=== PATIENT | male | born 1985 | race Caucasian/White ===

== ENCOUNTER → 2020-10-05 16:23 | Outpatient (CLI) | payer OTHER, SELFPAY ==
--- NOTE | 2020-10-05 16:30 | XR_ITS ---
PROCEDURE: XR CHEST PORTABLE CLINICAL HISTORY: COVID OUTPATIENT Cough and shortness of breath COMPARISON: No exams were available for comparison FINDINGS: The cardiomediastinal silhouette and pulmonary vascularity are within normal limits. The lungs are clear without infiltrates, suspicious nodules, or pleural effusions. No acute bony abnormalities. IMPRESSION: No acute findings. Dictated by: Fabricio Ho MD 10/05/2020 16:42 Fabricio Ho MD in [facility] 10/05/2020 16:42
[2020-10-05 16:53] LABS: Basophils % 0.3 % (0.1-2.0); Eosinophils # 0.1 K/mm3 (0.0-0.4); Eosinophils % 1.2 % (0.1-12.0); Hematocrit 46.6 % (42.0-52.0); Hemoglobin 16.4 g/dL (14.1-18.0); Lymphocytes % 39.3 % (10-50); Mean Corpuscular HGB Conc 35.1 g/dL (31.8-35.4); Mean Corpuscular Hemoglobin 31.6 pg (27.0-31.2); Mean Platelet Volume 7.8 fl (7.4-10.4); Monocytes # 0.4 K/mm3 (0.1-1.0); Monocytes % 4.7 % (1.7-9.3); Neutrophils # 4.2 K/mm3 (1.8-7.8); Neutrophils % 54.4 % (37.0-80.0); Platelet Count 277 K/mm3 (142-424); Red Blood Count 5.18 M/mm3 (4.60-6.20); Red Cell Distribution Width 13.2 % (11.5-17.5); White Blood Count 7.7 K/mm3 (4.8-10.8)
--- NOTE | 2020-10-05 18:05 | ECG_ITS ---
APPROVED REPORT Exam: Resting ECG HR:70 bpm ECG Measurements Heart Rate 70 AXES WA 170 P 17 QRSd 84 QRS 54 QT 364 T 31 QTc 393 Conclusion Normal sinus rhythm Normal ECG Electronically signed by : Rafiq Norman, 10/06/2020 19:35:59
[2020-10-07 14:00] LABS: Covid-19 Nasal PCR Sendout Lex Not Detected
== END ==
PROVIDERS: PCP Nurse Practitioner; Visit Provider Nurse Practitioner
DX: Z03.818 Encounter for observation for suspected exposure to other biological agents ruled out (principal)
CPT/HCPCS: 36415; 71045; 85025; 93005; U0004

== ENCOUNTER → 2020-11-09 12:51 | Outpatient (CLI) | payer OTHER, SELFPAY ==
[2020-11-09 18:32] LABS: Basophils # 0.1 K/mm3 (0-0.2); Basophils % 0.7 % (0.1-2.0); Eosinophils # 0.1 K/mm3 (0.0-0.4); Eosinophils % 1.4 % (0.1-12.0); Hematocrit 49.7 % (42.0-52.0); Lymphocytes # 2.3 K/mm3 (0.7-4.5); Lymphocytes % 34.5 % (10-50); Mean Corpuscular HGB Conc 34.1 g/dL (31.8-35.4); Mean Corpuscular Hemoglobin 31.6 pg (27.0-31.2); Mean Corpuscular Volume 92.6 fl (80-94); Mean Platelet Volume 8.6 fl (7.4-10.4); Monocytes # 0.2 K/mm3 (0.1-1.0); Monocytes % 3.5 % (1.7-9.3); Neutrophils # 4.1 K/mm3 (1.8-7.8); Platelet Count 248 K/mm3 (142-424); Red Blood Count 5.37 M/mm3 (4.60-6.20); Red Cell Distribution Width 13.2 % (11.5-17.5); White Blood Count 6.8 K/mm3 (4.8-10.8)
== END ==
PROVIDERS: PCP Nurse Practitioner; Visit Provider Nurse Practitioner
DX: Z11.52 Encounter for screening for COVID-19 (principal)
CPT/HCPCS: 36415; 85025; 87275; 87276; U0003

== ENCOUNTER → 2020-11-24 15:20 | Outpatient (CLI) | payer OTHER, SELFPAY ==
[2020-11-24 16:45] LABS: Uric Acid 6.5 mg/dl (3.5-8.5)
[2020-11-24 16:51] LABS: C-Reactive Protein 0.9 mg/L (0-4)
[2020-11-24 17:19] LABS: Erythrocyte Sedimentation Rate 7 mm/hr (0-15)
[2020-11-26 08:48] LABS: RA Latex Turbid. <10.0 IU/mL (0.0-13.9)
[2020-11-26 18:49] LABS: Cytoplasmic (C-ANCA) <1:20 titer (Neg:<1:20); Perinuclear (P-ANCA) <1:20 titer (Neg:<1:20)
[2020-11-27 10:39] LABS: Anti-Cyclic Citrullinated Pept 5 units (0-19)
[2020-11-27 22:18] LABS: D001-IgE D pteronyssinus <0.10 kU/L (Class 0); D002-IgE D farinae <0.10 kU/L (Class 0); E001-IgE Cat Dander <0.10 kU/L (Class 0); E005-IgE Dog Dander <0.10 kU/L (Class 0); G002-IgE Bermuda Grass <0.10 kU/L (Class 0); G006-IgE Timothy Grass <0.10 kU/L (Class 0); I006-IgE Cockroach, German <0.10 kU/L (Class 0); Immunoglobulin E, Total 11 IU/mL (6-495); M001-IgE Penicillium chrysogen <0.10 kU/L (Class 0); M002-IgE Cladosporium herbarum <0.10 kU/L (Class 0); M003-IgE Aspergillus fumigatus <0.10 kU/L (Class 0); M006-IgE Alternaria alternata <0.10 kU/L (Class 0); T001-IgE Maple/Box Elder <0.10 kU/L (Class 0); T006-IgE Cedar, Mountain <0.10 kU/L (Class 0); T007-IgE Oak, White <0.10 kU/L (Class 0); T008-IgE Elm, American <0.10 kU/L (Class 0); T010-IgE Walnut <0.10 kU/L (Class 0); T011-IgE Maple Leaf Sycamore <0.10 kU/L (Class 0); T014-IgE Cottonwood <0.10 kU/L (Class 0); T015-IgE Ash, White <0.10 kU/L (Class 0); T022-IgE Pecan, Hickory <0.10 kU/L (Class 0); T070-IgE White Mulberry <0.10 kU/L (Class 0); W001-IgE Ragweed, Short <0.10 kU/L (Class 0); W011-IgE Thistle, Russian <0.10 kU/L (Class 0); W014-IgE Pigweed, Common <0.10 kU/L (Class 0); W016-IgE Rough Marshelder <0.10 kU/L (Class 0)
[2020-11-28 12:19] LABS: E072-IgE Mouse Urine <0.10 kU/L (Class 0)
[2020-11-29 09:35] LABS: Antinuclear Antibodies, IFA Negative (.)
[2020-11-30 12:12] LABS: Antinuclear Antibodies (ANA) Negative
== END ==
PROVIDERS: Visit Provider Internal Medicine Pulmonary Disease
DX: R06.00 Dyspnea, unspecified (principal); J98.4 Other disorders of lung; J44.9 Chronic obstructive pulmonary disease, unspecified; J84.9 Interstitial pulmonary disease, unspecified
CPT/HCPCS: 36415; 82785; 84550; 85651; 86003; 86038; 86140; 86200; 86225; 86235; 86256; 86431

== ENCOUNTER → 2020-12-18 14:01 | Outpatient (CLI) | payer OTHER, SELFPAY ==
--- NOTE | 2020-12-18 14:01 | CT_ITS ---
PROCEDURE: CT CHEST WO CON CLINICAL INDICATION: ILD Shortness of air COMPARISON: CR XR CHEST PORTABLE from 10/05/2020 TECHNIQUE: Axial images obtained with sagittal and coronal reformats. All CT scans at the facility use one or more dose reduction, viz: automated exposure control, ma/kV adjustment per patient size (including targeted exams where dose is matched to indication, i.e. head), or iterative reconstruction technique. Inspiration and expiration images were acquired. FINDINGS: There is no infiltrate. There is mild right basilar linear atelectasis. The lungs are clear. There are no suspicious lung nodules or masses. No visible areas of air trapping. No fibrotic change. No pleural effusions. The thyroid gland has an unremarkable unenhanced appearance. There is no suspicious thoracic adenopathy. Major vasculature has an unremarkable unenhanced appearance. Partial visualization of the upper abdomen is unremarkable. A benign bone island is incidentally noted a and the T12 vertebral body. IMPRESSION: Unremarkable high-resolution chest CT without CT evidence of interstitial lung disease. Dictated by: Xi Fernandez MD 12/18/2020 18:58 Xi Fernandez MD in [facility] 12/18/2020 18:58
[2020-12-18 15:40] VITALS: PULSE 72; PULSE 76
== END ==
PROVIDERS: PCP Nurse Practitioner; Visit Provider Internal Medicine Pulmonary Disease
DX: R06.09 Other forms of dyspnea (principal); R91.8 Other nonspecific abnormal finding of lung field; J84.9 Interstitial pulmonary disease, unspecified; J98.4 Other disorders of lung; Z87.09 Personal history of other diseases of the respiratory system
CPT/HCPCS: 71250; 94060; 94618; 94640; 94726; 94729

== ENCOUNTER → 2021-11-10 11:04 | Outpatient (CLI) | payer OTHER, SELFPAY ==
[2021-11-10 13:09] LABS: Adenovirus,PCR Not Detected (NotDetected); Bordetella Pertussis Not Detected (NotDetected); Chlamydophila Pneumoniae, PCR Not Detected (NotDetected); Coronavirus 19, PCR Not Detected (NotDetected); Coronavirus 229E Not Detected (NotDetected); Coronavirus NL63 Not Detected (NotDetected); Coronavirus OC43 Not Detected (NotDetected); Coronovirus HKU1,PCR Not Detected (NotDetected); Human Metapneumovirus Not Detected (NotDetected); Influenza A, PCR Not Detected (NotDetected); Influenza AH1, 2009 Not Detected (NotDetected); Influenza AH1, PCR Not Detected (NotDetected); Influenza AH3,PCR Not Detected (NotDetected); Influenza B, PCR Not Detected (NotDetected); Mycoplasma Pneumoniae, PCR Not Detected (NotDetected); Parainfluenza 1, PCR Not Detected (NotDetected); Parainfluenza 2, PCR Not Detected (NotDetected); Parainfluenza 3, PCR Not Detected (NotDetected); Parainfluenza 4, PCR Not Detected (NotDetected); Respiratory Syncytial Virus Not Detected (NotDetected); Rhinovirus/Enterovirus Not Detected (NotDetected)
[2021-11-10 13:13] LABS: Basophils # 0.2 K/mm3 (0-0.2); Basophils % 2.5 % (0.1-2.0); Eosinophils # 0.1 K/mm3 (0.0-0.4); Hematocrit 48.3 % (42.0-52.0); Hemoglobin 15.6 g/dL (14.1-18.0); Lymphocytes # 1.1 K/mm3 (0.7-4.5); Lymphocytes % 18.4 % (10-50); Mean Corpuscular HGB Conc 32.4 g/dL (31.8-35.4); Mean Corpuscular Hemoglobin 30.6 pg (27.0-31.2); Mean Corpuscular Volume 94.7 fl (80-94); Mean Platelet Volume 8.9 fl (7.4-10.4); Monocytes # 0.7 K/mm3 (0.1-1.0); Neutrophils # 3.8 K/mm3 (1.8-7.8); Platelet Count 225 K/mm3 (142-424); Red Cell Distribution Width 13.1 % (11.5-17.5); White Blood Count 5.8 K/mm3 (4.8-10.8)
[2021-11-10 14:24] LABS: Strep Scrn Group A (Rapid) Negative (Negative)
== END ==
PROVIDERS: PCP Nurse Practitioner; Visit Provider Nurse Practitioner
DX: Z20.822 Contact with and (suspected) exposure to COVID-19 (principal); J02.9 Acute pharyngitis, unspecified
CPT/HCPCS: 36415; 85025; 87430; 87581; 87632; 87798; C9803; U0003; U0005

== ENCOUNTER → 2022-09-30 16:11 | Outpatient (CLI) | payer OTHER, SELFPAY ==
[2022-09-30 19:27] LABS: Basophils # 0.1 K/mm3 (0-0.2); Basophils % 1.3 % (0.1-2.0); Eosinophils # 0.3 K/mm3 (0.0-0.4); Eosinophils % 3.3 % (0.1-12.0); Hematocrit 49.6 % (42.0-52.0); Lymphocytes # 2.9 K/mm3 (0.7-4.5); Lymphocytes % 31.2 % (10-50); Mean Corpuscular HGB Conc 34.3 g/dL (31.8-35.4); Mean Corpuscular Hemoglobin 31.1 pg (27.0-31.2); Mean Corpuscular Volume 90.6 fl (80-94); Mean Platelet Volume 9.2 fl (7.4-10.4); Monocytes # 0.6 K/mm3 (0.1-1.0); Monocytes % 6.1 % (1.7-9.3); Neutrophils # 5.4 K/mm3 (1.8-7.8); Neutrophils % 58.1 % (37.0-80.0); Platelet Count 291 K/mm3 (142-424); Red Blood Count 5.48 M/mm3 (4.60-6.20); Red Cell Distribution Width 13.1 % (11.5-17.5); White Blood Count 9.3 K/mm3 (4.8-10.8)
[2022-09-30 19:48] LABS: Alanine Aminotransferase 130 U/L (12-78); Albumin Level 4.9 g/dl (3.5-5.0); Albumin/Globulin Ratio 1.6 (1.1-1.8); Alkaline Phosphatase 113 U/L (38-126); Anion Gap 14.6 mEq/L (5-15); Aspartate Amino Transferase 66 U/L (17-59); Bilirubin,Total 0.6 mg/dl (0.2-1.3); Blood Urea Nitrogen 22 mg/dl (9-20); Calcium 10.1 mg/dl (8.4-10.2); Carbon Dioxide 27 mmol/L (22.0-30.0); Chloride 103 mmol/L (98-107); Estimated Glomerular Filt Rate 76 ml/min (>60); GFR (African American) 92 ML/MIN (>60); Glucose 96 mg/dl (74-100); Potassium 4.6 mmoL/L (3.5-5.1); Sodium 140 mmol/L (136-145); Total Protein,Serum 7.9 g/dl (6.3-8.2)
== END ==
PROVIDERS: PCP Family Medicine; Visit Provider Family Medicine
DX: R53.83 Other fatigue (principal); T50.B95A Adverse effect of other viral vaccines, initial encounter
CPT/HCPCS: 80053; 85025

== ENCOUNTER → 2023-05-15 15:48 | Outpatient (CLI) | payer BC, SELFPAY ==
[2023-05-15 19:08] LABS: Basophils % 0.5 % (0.1-2.0); Eosinophils # 0.1 K/mm3 (0.0-0.4); Eosinophils % 1.9 % (0.1-12.0); Hematocrit 46.4 % (42.0-52.0); Hemoglobin 15.7 g/dL (14.1-18.0); Lymphocytes # 2.7 K/mm3 (0.7-4.5); Lymphocytes % 36.8 % (10-50); Mean Corpuscular Volume 88.3 fl (80-94); Monocytes # 0.5 K/mm3 (0.1-1.0); Monocytes % 6.2 % (1.7-9.3); Neutrophils % 54.6 % (37.0-80.0); Platelet Count 256 K/mm3 (142-424); Red Blood Count 5.25 M/mm3 (4.60-6.20); Red Cell Distribution Width 13.1 % (11.5-17.5); White Blood Count 7.4 K/mm3 (4.8-10.8)
[2023-05-15 19:18] LABS: Alanine Aminotransferase 80 U/L (12-78); Albumin Level 4.4 g/dl (3.5-5.0); Albumin/Globulin Ratio 1.5 (1.1-1.8); Alkaline Phosphatase 93 U/L (38-126); Anion Gap 10.9 mEq/L (5-15); Aspartate Amino Transferase 44 U/L (17-59); Bilirubin,Total 0.3 mg/dl (0.2-1.3); Blood Urea Nitrogen 20 mg/dl (9-20); Calcium 9.4 mg/dl (8.4-10.2); Carbon Dioxide 27 mmol/L (22.0-30.0); Chloride 106 mmol/L (98-107); Estimated Glomerular Filt Rate 84 ml/min (>60); GFR (African American) 102 ML/MIN (>60); Glucose 100 mg/dl (74-100); Potassium 4.9 mmoL/L (3.5-5.1); Sodium 139 mmol/L (136-145); Total Protein,Serum 7.4 g/dl (6.3-8.2)
[2023-05-15 19:36] LABS: 25-OH Vitamin D, Total 33.9 ng/mL (30-100)
[2023-05-15 19:48] LABS: Thyroid Stimulating Hormone 1.95 uIU/mL (0.465-4.68)
[2023-05-15 20:07] LABS: Vitamin B12 599 pg/mL (239-931)
[2023-05-15 20:33] LABS: Hemoglobin A1C 5.1 % (4.0-6.0)
[2023-05-17 05:09] LABS: Testosterone,Total 327 ng/dL (264-916)
== END ==
LOC: LAB.DROPOF 05-16 06:57
PROVIDERS: PCP Nurse Practitioner; Visit Provider Nurse Practitioner
DX: R53.83 Other fatigue (principal); E66.9 Obesity, unspecified; Z68.37 Body mass index [BMI] 37.0-37.9, adult; M79.604 Pain in right leg; Z87.81 Personal history of (healed) traumatic fracture
CPT/HCPCS: 80053; 82306; 82607; 83036; 84403; 84443; 85025

== ENCOUNTER 2023-11-22 19:37 | Outpatient (CLI) | payer BC, SELFPAY ==
[2023-11-22 20:43] LABS: Adenovirus,PCR Not Detected (NotDetected); Coronavirus 19, PCR Not Detected (NotDetected); Coronavirus 229E Not Detected (NotDetected); Coronavirus NL63 Not Detected (NotDetected); Coronavirus OC43 Not Detected (NotDetected); Coronovirus HKU1,PCR Not Detected (NotDetected); Human Metapneumovirus Not Detected (NotDetected); Influenza A, PCR Not Detected (NotDetected); Influenza AH1, 2009 Not Detected (NotDetected); Influenza AH1, PCR Not Detected (NotDetected); Influenza AH3,PCR Not Detected (NotDetected); Parainfluenza 1, PCR Not Detected (NotDetected); Parainfluenza 2, PCR Not Detected (NotDetected); Parainfluenza 3, PCR Not Detected (NotDetected); Parainfluenza 4, PCR Not Detected (NotDetected); Respiratory Syncytial Virus Not Detected (NotDetected); Rhinovirus/Enterovirus Not Detected (NotDetected)
[2023-11-22 22:32] LABS: Influenza B, PCR Detected (NotDetected)
== END 2023-11-22 23:59 ==
PROVIDERS: PCP Nurse Practitioner; Visit Provider Nurse Practitioner
DX: J06.9 Acute upper respiratory infection, unspecified (principal); J10.1 Influenza due to other identified influenza virus with other respiratory manifestations; R09.81 Nasal congestion; R50.9 Fever, unspecified; R05.9 Cough, unspecified; J02.9 Acute pharyngitis, unspecified
CPT/HCPCS: 87632; 87635

== ENCOUNTER 2024-06-14 11:20 | Outpatient (CLI) | payer BC, SELFPAY | END 2024-06-14 23:59 | disposition home or self-care (01) | LOC: LAB.DROPOF 06-17 11:21 | PROVIDERS: PCP Nurse Practitioner Family; Visit Provider Nurse Practitioner Family | DX: N20.0 Calculus of kidney (principal) | CPT/HCPCS: 87086 ==

== ENCOUNTER 2025-05-19 15:50 | Outpatient (CLI) | payer BC, SELFPAY ==
--- OUTSIDE RECORDS SUMMARY | 2025-04-08 12:30 | XMS_ITS | Encounter Summary ---
Author Organization [place] [address] Care Team Providers Care Graduate Assistant Athletic Trainer Name Role Phone Bradford Howe MD Primary Care Provider [phone] Reason for Referral * Consultation (Emergency) - Pending Review Specialty Diagnoses / Procedures Referred By Contac t Referred To Contact Diagnoses Acute pain of left shoulder Procedures [place] OFFICE/OUTPATIENT NEW MODERATE MDM 45 MINUTES Blake Lee MD [address] [place], [place] [id number] Phone: tel: fax: Referral ID Status Reason Start Date Expiration Date V isits Requested Visits Authorized [id number] Pending Review 04/08/2025 04/08/2026 99 99 Reason for Visit * Reason Comments Shoulder Injury X 1 hr Encounter Details Date Type Department Care Team (Late st Contact Info) Description 04/08/2025 12:30 PM EDT [facility] [address] [address] [address] [place] [address] Blake Lee MD [address] [place] [address] Acute pain of left shoulder (Primary Dx) Social History Tobacco Use Types Packs/Day Years Used Date Smoking Tobacco: Never Smokeless Tobacco: Never Alcohol Use Standard Drinks/Week Comments No 0 (1 standard drink = 0.6 oz pur e alcohol) Sex and Gender Information Value Date Recorded Sex Assigned at Not on file Legal Sex Male 7:22 AM EDT Gender Identity Not on file Sexual Orientation Not on file documented as of this encounter Last Filed Vital Signs Vital Sign Reading Time Taken Comments Blood Pressure 156/88 04/08/2025 12:23 PM EDT Pulse 79 04/08/2025 12:23 PM EDT Temperature 36.6 C (97.8 F) 04/08/2025 12:23 PM EDT Respiratory Rate 18 04/08/2025 12:23 PM EDT Oxygen Saturation 97% 04/08/2025 12:23 PM EDT Inhaled Oxygen Concentration - - Weight 94.3 kg (208 lb) 04/08/2025 12:23 PM EDT Height 180.3 cm (5' 11 ) 04/08/2025 12:23 PM EDT Body Mass Index 29.01 04/08/2025 12:23 PM EDT documented in this encounter Patient Instructions * Attachments The following attachments cannot be sent through Care Everywhere. * Shoulder impingement ([place]enezuelan) * Rotator cuff injury ([place]enezuelan) documented in this encounter Ordered Prescriptions Prescription Sig Dispense Quantity Refills Last Filled Start Date End Date diclofenac (VOLTAREN) 75 mg Oral Tablet, Delayed Release (E.C.)Indications:A cute pain of left shoulder Take 1 Tablet by mouth 2 times daily (with meals). 30 Tablet 04/08/2025 documented in this encounter Progress Notes * Blake Lee MD - 04/08/2025 12:30 PM EDTAssociated Order(s): BURSA INJECTION Subjective: Patient ID: Tio Mccormick is a 39 y.o. male. Chief Complaint Patient presents with Shoulder Injury X 1 hr HPI Patient fell on his left shoulder a few months ago and since then the shoulder has been painful on and off especially at night. ED today he was pulling something at work and felt pain in the left shoulder as well. I only know if he has been having a milder pain in the right shoulder Patients past medical, family and social histories were reviewed and updated. There were no changesexcept as noted. Review of Systems Constitutional: Negative for activity change, appetite change, chills, diaphoresis, fatigue and fever. HENT: Negative for congestion, ear discharge, ear pain, postnasal drip, rhinorrhea, sinus pressure,sinus pain, sore throat and voice change. Eyes: Negative for pain and discharge. Respiratory: Negative for cough and wheezing. Cardiovascular: Negative for chest pain. Gastrointestinal: Negative for diarrhea and nausea. Genitourinary: Negative for dysuria, flank pain, frequency and hematuria. Musculoskeletal: Negative for arthralgias, back pain, gait problem and myalgias. Skin: Negative for rash. Neurological: Negative for numbness and headaches. Hematological: Negative for adenopathy. Psychiatric/Behavioral: Negative for behavioral problems. The patient is not nervous/anxious. BURSA INJECTION Date/Time: 04/08/2025 1:42 PM Performed by: Blake Lee MD Authorized by: Blake Lee MD Indications: pain Body area: shoulder Joint: left shoulder Needle size: 22 G Approach: posterior Methylprednisolone amount: 40 mg Lidocaine 1% amount: 7 mL Patient tolerance: patient tolerated the procedure well with no immediate complications Comments: Patient reported 25% improvement in pain and range of motion Objective: Vitals: 04/08/25 1223 BP: 156/88 BP Location: Left arm Patient Position: Sitting Pulse: 79 Resp: 18 Temp: 97.8 ??F (36.6 ??C) TempSrc: Oral SpO2: 97% Weight: 208 lb (94.3 kg) Height: 5' 11 (1.803 m) Body mass index is 29.01 kg/m??. Physical Exam Constitutional: General: He is not in acute distress. Appearance: Normal appearance. He is not ill-appearing, toxic-appearing or diaphoretic. HENT: Head: Normocephalic and atraumatic. Nose: Nose normal. No congestion or rhinorrhea. Eyes: General: Right eye: No discharge. Left eye: No discharge. Extraocular Movements: Extraocular movements intact. Conjunctiva/sclera: Conjunctivae normal. Cardiovascular: Rate and Rhythm: Normal rate. Pulmonary: Effort: Pulmonary effort is normal. No respiratory distress. Breath sounds: No stridor. Abdominal: General: Abdomen is flat. There is no distension. Musculoskeletal: General: No deformity. Normal range of motion. Cervical back: Normal range of motion and neck supple. Comments: Right shoulder showed full but painful range of motion left shoulder showed the very limited range of motion Especially abduction with no tenderness over the AC joint Skin: General: Skin is dry. Coloration: Skin is not jaundiced. Findings: No bruising or rash. Neurological: Mental Status: He is alert and oriented to person, place, and time. Motor: No abnormal muscle tone. Coordination: Coordination normal. Psychiatric: Mood and Affect: Mood normal. Behavior: Behavior normal. Assessment & Plan Acute pain of left shoulder Orders: XR SHOULDER LEFT 4 VIEWS; Future [place] ARTHROCENTESIS ASPIR&/INJ MAJOR JT/BURSA W/O US AMB REFERRAL TO ORTHOPEDIC SURGERY COURSE & MEDICAL DECISION MAKING Pertinent PMH and subjective/individualized health status, previous hospital admissions and office visits, previous diagnostic test results; as well as evaluating and examining the patient. Counseling the patient on their acute diagnosis and symptomology; reviewing, considering prescribing, or prescribing appropriate medications for the diagnosis and treatment of the acute condition as well as reviewing potential drug interactions and contraindications to newly prescribed medications corresponding with current health status and previously prescribed medications; reviewing discharge instructions respective to continuity of care with their PCP, or as applicable to acutely worsening conditionsthat may require immediate Emergency Department intervention in order to properly formulate an individualized care plan: Education provided regarding the care plan and instructions listed on the After Visit Summary [AVS]for today's visit. Full understanding of the care plan and instructions given on the AVS for today's visit was verbalized. Provided problem specific pt education information pertinent to their diagnosis and presentation today given as both verbal and printed recommendations, information and advice. See the wrap up section of the chart for the specific education information that was provided to and discussed in part as a part of the patient visit. 1. Instructed that if any acute problems worsen or fail to improve that they should contact urgent care or covering physician. If acutely worse, unable to reach our physicians (and is an emergency) go to emergency room. 2. All the problems above are stable except as indicated above. Medications, if ordered, have been reviewed and possible side effects discussed with patient today. Return for a recheck if not improved or worse, with your PCP. PLANS FOLLOWS: Normal x-ray of the left shoulder follow-up with orthopedic surgery Patient was agreeable with this plan of care, and thankful for the care she received today in the urgent care. Full PPE was donned and both contact and airborne precautions were implemented during examination of this patient. This chart was completed using Dragon voice recognition technology and may contain unintended errors. No follow-ups on file. documented in this encounter Plan of Treatment Scheduled Orders Name Type Priority Associated Diagnoses Orde r Schedule [place] ARTHROCENTESIS ASPIR&/INJ MAJOR JT/BURSA W/O US [place] Charge Routine Acute pain of left shoulder Ordered: 04/08/2025 Scheduled Referrals Name Type Priority Associated Diagnoses Order Schedule AMB REFERRAL TO ORTHOPEDIC SURGERY Outpatient Referral STAT Acute pain of left shoulder Ordered: 04/08/2025 documented as of this encounter Procedures Procedure Name Priority Date/Time Associated Diagnosis Comments PROCEDURE DOCUMENTATION - ASPIRATION Routine 04/08/2025 1:42 PM EDT Acute pain of left shoulder documented in this encounter Results * BURSA INJECTION (04/08/2025 1:42 PM EDT) Narrative [facility] - 04/08/2025 1:42 PM EDT Blake Lee MD 04/08/2025 1:43 PM BURSA INJECTION Date/Time: 04/08/2025 1:42 PM Performed by: Blake Lee MD Authorized by: Blake Lee MD Indications: pain Body area: shoulder Joint: left shoulder Needle size: 22 G Approach: posterior Methylprednisolone amount: 40 mg Lidocaine 1% amount: 7 mL Patient tolerance: patient tolerated the procedure well with no immediate complications Comments: Patient reported 25% improvement in pain and range of motion Blake Lee MD PROCEDURE/MINOR SURGICAL ORDERAB LES Final Result [facility] * XR SHOULDER LEFT 4 VIEWS (04/08/2025 12:51 PM EDT) Anatomical Region Laterality Modality Shoulder Radiographic Zahra ging 04/08/2025 12:5 1 PM EDT Impressions 04/08/2025 12:54 PM EDT No acute bony abnormality of the shoulder. - Note: Radiology results need to be interpreted within a comprehensive clinical context. If you have questions about the radiology report, please contact the office of the ordering clinician. Narrative 04/08/2025 12:54 PM EDT XR SHOULDER LEFT 4 VIEWS, 04/08/2025 12:51 PM CLINICAL HISTORY: M25.512-Pain in left [id number]-DWM-28-CM COMPARISON: None. PROCEDURE COMMENTS: Routine views. FINDINGS: The glenohumeral and acromioclavicular joints are congruent. There is no fracture. Joint spaces overall well-maintained for age. No periostitis. Procedure Note Thomas Booth MD - 04/08/2025 XR SHOULDER LEFT 4 VIEWS, 04/08/2025 12:51 PM CLINICAL HISTORY: M25.512-Pain in left [id number]-[id number]-79-CM COMPARISON: None. PROCEDURE COMMENTS: Routine views. FINDINGS: The glenohumeral and acromioclavicular joints are congruent.There is no fracture. Joint spaces overall well-maintained for age. No periostitis. IMPRESSION: No acute bony abnormality of the shoulder. - Note: Radiology results need to be interpreted within a comprehensiveclinical context. If you have questions about the radiology report, please contactthe office of the ordering clinician. Blake Lee MD IM DIAGNOSTIC IMAGING ORDERABLE S Final Result documented in this encounter Visit Diagnoses Diagnosis Acute pain of left shoulder- Primary Acute pain of left shoulder documented in this encounter Administered Medications Inactive Administered Medications - up to 1 most recent administrations Medication Order MAR Action Action Date Dose Rate Site methylPREDNISolone acetate (DEPO-Medrol) injection 40 mg 40 mg, Intra-articular, ONCE, 1 dose, On Tu04/08/25 at 1330, Dx: 1. Acute pain of left shoulderIndications:Acute pain of left shoulder Given 04/08/2025 1:30 PM EDT 40 mg Left Shoulder documented in this encounter Orders Medications Ordered That Bowen ht Not Have Been Administered Count Last Ordered Date First Ordered Date methylPREDNISolone acetate ( DEPO-Medrol) injection 40 mg 1 04/08/2025 documented in this encounter Care Teams Graduate Assistant Athletic Trainer Relationship Specialty Start Date End Date Bradford Howe MD [address] [place] [address] [place] [phone] PCP - General Psychiatry & Neurology-Neurology 10/04/11 documented as of this encounter
--- OUTSIDE RECORDS SUMMARY | 2025-04-08 12:50 | XMS_ITS | Encounter Summary ---
Author Organization [place] [address] Care Team Providers Care Director Of Operations For Therapy Name Role Phone Bradford Howe MD Primary Care Provider [phone] Encounter Details Date Type Department Care Team (Latest Contact Info) Description 04/08/2025 12:50 PM EDT Ancillary Procedure [facility] [address] [address] [address] [place] [phone] Blake Lee MD [address] [place] [address] [address] [place] [address] Acute pain of left shoulder Discharge Disposition: [...] 12:51 PM CLINICAL HISTORY: M25.512-Pain in left [id number]-LEY-18-CM COMPARISON: None. PROCEDURE COMMENTS: Routine views. FINDINGS: The glenohumeral and acromioclavicular joints are congruent. There is no fracture. Joint spaces overall well-maintained for age. No periostitis. Procedure Note Thomas Booth MD - 04/08/2025 XR SHOULDER LEFT 4 VIEWS, 04/08/2025 12:51 PM CLINICAL HISTORY: M25.512-Pain in left phsxglio-CNE-70-CM COMPARISON: None. PROCEDURE COMMENTS: Routine views. FINDINGS: The glenohumeral and acromioclavicular joints are congruent.There is no fracture. Joint spaces overall well-maintained for age. No periostitis. IMPRESSION: No acute bony abnormality of the shoulder. - Note: Radiology results need to be interpreted within a comprehensiveclinical context. If you have questions about the radiology report, please contactthe office of the ordering clinician. Blake Lee MD [facility] DIAGNOSTIC IMAGING ORDERABLE S Final Result documented in this encounter Visit Diagnoses Diagnosis Acute pain of left shoulder documented in this encounter Care Teams Director Of Operations For Therapy Relationship Specialty Start Date End Date Bradford Howe MD [address] [place] [address] [place] [phone] PCP - General Psychiatry & Neurology-Neurology 10/04/11 documented as of this encounter
[2025-05-19 19:08] LABS: Lyme Ab IgM CIA ND
[2025-05-19 19:33] LABS: Hematocrit 46.1 % (42.0-52.0); Hemoglobin 15.5 g/dL (14.1-18.0); Immature Granulocytes % 1.0 %; Mean Corpuscular HGB Conc 33.6 g/dL (31.8-35.4); Mean Corpuscular Hemoglobin 29.5 pg (27.0-31.2); Mean Corpuscular Volume 87.8 fl (80-94); Nucleated Red Blood Cells % 0 %; Platelet Count 227 K/mm3 (142-424); Red Blood Count 5.25 M/mm3 (4.60-6.20); Red Cell Distribution Width-SD 39.8 fL; White Blood Count 5.9 K/mm3 (4.8-10.8)
[2025-05-19 19:51] LABS: Albumin Level 4.9 g/dl (3.5-5.0); Chloride 102 mmol/L (98-107)
[2025-05-19 19:52] LABS: Potassium 4.5 mmoL/L (3.5-5.1); Sodium 140 mmol/L (136-145)
[2025-05-19 19:54] LABS: Alanine Aminotransferase 201 U/L (12-78); Anion Gap 14.5 mEq/L (5-15); Aspartate Amino Transferase 88 U/L (17-59); Blood Urea Nitrogen 18 mg/dl (9-20); Carbon Dioxide 28 mmol/L (22.0-30.0); Creatinine,Serum 0.90 mg/dl (0.66-1.25); Estimated Glomerular Filt Rate 94 ml/min (>60); GFR (African American) 114 ML/MIN (>60)
[2025-05-19 19:55] LABS: Albumin/Globulin Ratio 1.5 (1.1-1.8); Alkaline Phosphatase 77 U/L (38-126); Bilirubin,Total 0.9 mg/dl (0.2-1.3); Calcium 9.9 mg/dl (8.4-10.2); Globulin 3.3 g/dL (1.3-3.2); Glucose 86 mg/dl (74-100); Total Protein,Serum 8.2 g/dl (6.3-8.2)
[2025-05-19 20:00] LABS: C-Reactive Protein 1.2 mg/L (0-4)
[2025-05-19 20:45] LABS: Hepatitis C Ab Qual. W/ RFX NEGATIVE (Negative)
--- OUTSIDE RECORDS SUMMARY | 2025-05-20 12:18 | XMS_ITS | Clinical Summary ---
Author Organization [facility] Address [address] [place] [address] Phone Care Team Providers Care Cuff Setter Overlock Name Role Phone Tariq Lagos MD [phone] Conditions or Problems No information available. Medications No information available. Medications Administered No information available. Allergies, Adverse Reactions, Alerts No information available. Results No information available. Plan of Care No information available. Procedures No information available. Vital Signs No information available. Immunizations No information available. Advance Directives No information available.
--- OUTSIDE RECORDS SUMMARY | 2025-05-20 12:19 | XMS_ITS | Referral Summary ---
Author Organization [facility] Address [address] [place] [address] Care Team Providers Care Sock Examiner Name Role Phone Pcp, None MD Primary Care Provider [phone] Medications valacyclovir (VALTREX) 500 MG TABS Take 500 mg by mouth 2 (two) times daily. Active Active Problems No known active problems Social History Tobacco Use Types Packs/Day Years Used Date Smoking Tobacco: Never Smokeless Tobacco: Never Sex and Gender Information Value Date Recorded Sex Assigned at Not on file Legal Sex Male 1:49 PM EDT Gender Identity Not on file Sexual Orientation Not on file Last Filed Vital Signs Vital Sign Reading Time Taken Comments Blood Pressure 140/89 03/01/2019 2:08 PM EDT Pulse 76 03/01/2019 2:08 PM EDT Temperature 37.1 C (98.7 F) 03/01/2019 2:08 PM EDT Respiratory Rate 16 03/01/2019 2:08 PM EDT Oxygen Saturation 99% 03/01/2019 2:08 PM EDT Inhaled Oxygen Concentration - - Weight 88.9 kg (196 lb) 03/01/2019 2:08 PM EDT Height 177.8 cm (5' 10 ) 03/01/2019 2:08 PM EDT Body Mass Index 28.12 03/01/2019 2:08 PM EDT Plan of Treatment Not on file Insurance [employer] ALL OTHERS NOT MEDICARE Care Teams Sock Examiner Relationship Specialty Start Date End Date Pcp, None, PCP - General Internal Medicine 03/01/19
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
--- OUTSIDE RECORDS SUMMARY | 2025-05-20 12:19 | XMS_ITS | Clinical Summary ---
Author Organization [facility] Address [address] [place] [address] Care Team Providers Care Glass Vial Filler Name Role Phone Nonstaff, Referring MD Primary Care Provider [phone] Layo Ortega MD Unavailable Unavailabl e Allergies Active Allergy Reactions Criticality Noted Date Comments Penicillins 11/25/2011 Tegaderm 12/07/2011 Immediate rash at iv site Medications HYDROmorphone (DILAUDID) 4 mg PO tablet Take 2 Tabs by mouth every 4 hours as needed. 90 Tab 0 12/09/2011 Active methocarbamol (ROBAXIN) 750 mg PO tablet Take 1-2 Tabs by mouth every 6 hours as needed. 112 Tab 0 12/09/2011 Active Active Problems Problem Noted Date Diagnosed Date Congenital spondylolisthesis 12/07/2011 Degeneration of lumbar or lumbosacral interverte bral disc 12/07/2011 Displacement of lumbar inter vertebral disc without myelopathy 12/07/2011 Family History Medical History Relation Name Comments Cancer Mother Relation Name Status Comments Mother Social History Tobacco Use Types Packs/Day Years Used Date Smoking Tobacco: Never Smokeless Tobacco: Never Alcohol Use Standard Drinks/Week Comments Yes 0 (1 standard drink = 0.6 oz pur e alcohol) occas Sex and Gender Information Value Date Recorded Sex Assigned at Not on file Legal Sex Male 7:15 PM EST Gender Identity Not on file Sexual Orientation Not on file Last Filed Vital Signs Vital Sign Reading Time Taken Comments Blood Pressure 122/77 12/09/2011 7:00 AM EST Pulse 96 12/09/2011 7:00 AM EST Temperature 37.3 C (99.2 F) 12/09/2011 7:00 AM EST Respiratory Rate 16 12/09/2011 7:00 AM EST Oxygen Saturation 95% 12/09/2011 7:00 AM EST Inhaled Oxygen Concentration - - Weight 79.8 kg (176 lb) 12/07/2011 5:18 PM EST Height 167.6 cm (5' 6 ) 12/07/2011 5:18 PM EST Body Mass Index 28.41 12/07/2011 5:18 PM EST Plan of Treatment Not on file Medical Devices Implanted Type Area Bone Process Operator Device Identifier Shelf Expiration Date Model / Serial / Lot Graft Bone Kt Infuse Med Implanted:Qty : 1 on 12/07/2011 at [facility] Spine Lumbar * MEDTRONIC 07/30/2014 [id number] / / [id number] Herman Mon Pre-Bent 30mm Ti Implanted:Qty : 1 on 12/07/2011 at [facility] Spine Lumbar * CYNTHIA MARIE [id number] / / Rashard Bone Crush Canc 30ml Implanted:Qty : 1 on 12/07/2011 at [facility] Spine Lumbar * LIFENET 08/30/2016 PCAN30 / / [id number] Grft Bone Crush Canc 30ml Implanted:Qty : 1 on 12/07/2011 at [facility] Spine Lumbar * LIFENET 08/29/2016 PCAN30 / / [id number] Mesh 12x23 Ov/Tr 12x16 Height Implanted:Qty : 2 on 12/07/2011 at [facility] Spine Lumbar * CYNTHIA MARIE [id number] / / Endcap 12x23 Implanted:Qty : 4 on 12/07/2011 at [facility] Spine Lumbar * CYNTHAI MARIE [id number] / / Scr Si Polyaxl 7 X 40mm Implanted:Qty : 2 on 12/07/2011 at [facility] Spine Lumbar * CYNTHIA MARIE [id number] / / Scr Si Polyaxl 6 X 50mm Implanted:Qty : 2 on 12/07/2011 at [facility] Spine Lumbar * CYNTHIA MARIE [id number] / / Single-Inner Setscr Implanted:Qty : 4 on 12/07/2011 at [facility] Spine Lumbar * CYNTHIA MARIE [id number] / / Herman Mon Pre-Bent 35mm Ti Implanted:Qty : 1 on 12/07/2011 at [facility] Spine Lumbar * CYNTHIA MARIE [id number] / / Insurance ANTHEM Advance Directives For more information, please contact: [phone] * Full Code (Latest Code Status on File) Date Activated Date Inactivated Comments 12/07/2011 5:35 PM 12/10/2011 12:33 AM Care Teams Glass Vial Filler Relationship Specialty Start Date End Date Laura Richardson MD [address] [place] [address] PCP - General 11/25/11 Layo Ortega MD [address] [place] [address] Orthopedic Surgery 11/06/22
--- OUTSIDE RECORDS SUMMARY | 2025-05-20 12:19 | XMS_ITS | Clinical Summary ---
Author Organization [facility] Address [address] [place] [id number] Care Team Providers Care Tariff Inspector Name Role Phone Pcp, None MD Primary Care Provider [phone] Medications valacyclovir (VALTREX) 500 MG TABS Take [...] 03/01/2019 2:08 PM EDT Plan of Treatment Health Maintenance Due Date Last Done Comments DTap,Tdap,and Td (1 - Tdap) 1996 HPV (1 - 3-dose SCDM series) 2012 Influenza Vaccine (#1) 2025 RSV Vaccine (60+ or ) (1 - 1-dose 75+ series) 2060 Meningococcal conjugate joel nt 4 (MCV4) Aged Out No longer eligible b ased on patient's age to complete this topic Pneumococcal 0-49 Aged Out No longer eligible based on patient's age to complete this topic RSV Immunization (<20 months) Aged Out No longer eligible based on patient's age to complete this topic Insurance [facility] ALL OTHERS NOT MEDICARE Care Teams Tariff Inspector Relationship Specialty Start Date End Date Pcp, None, PCP - General Internal Medicine 03/01/19
[2025-05-21 05:21] LABS: Hepatitis B Surface Antigen Negative (Negative)
[2025-05-21 14:12] LABS: Lyme Ab CIA Negative (Negative)
== END 2025-05-19 23:59 | disposition home or self-care (01) ==
LOC: LAB.DROPOF 05-20 12:17
PROVIDERS: PCP Nurse Practitioner; Visit Provider Nurse Practitioner
DX: S70.361A Insect bite (nonvenomous), right thigh, initial encounter (principal); L08.9 Local infection of the skin and subcutaneous tissue, unspecified; Z11.59 Encounter for screening for other viral diseases; W57.XXXA Bitten or stung by nonvenomous insect and other nonvenomous arthropods, initial encounter
CPT/HCPCS: 80053; 85025; 85651; 86140; 86618; 86803; 87340; 87389

== ENCOUNTER 2025-05-23 09:18 | Outpatient (CLI) | payer BC, SELFPAY ==
--- OUTSIDE RECORDS SUMMARY | 2025-04-08 12:30 | XMS_ITS | Encounter Summary ---
Author [place] [address] Care Team Providers Care Church History Teacher Name Role Phone Bradford Howe MD Primary Care Provider [phone] Reason for Referral * Consultation (Emergency) - Pending Review Specialty Diagnoses / Procedures Referred By Contac t Referred To Contact Diagnoses Acute pain of left shoulder Procedures [place] OFFICE/OUTPATIENT NEW MODERATE MDM 45 MINUTES Blake Lee MD [address] [place], [place] [id number] Phone: tel: fax: Referral ID Status Reason Start Date Expiration Date V isits Requested Visits Authorized [id number] Pending Review 04/08/2025 04/08/2026 99 99 Reason for Visit * Reason Comments Shoulder Injury X 1 hr Encounter Details Date Type Department Care Team (Late st Contact Info) Description 04/08/2025 12:30 PM EDT Office Visit [facility] [address] [address] [address] [place] [address] Blake Lee MD [address] [place] [address] Acute pain of left shoulder (Primary Dx) [...] sent through Care Everywhere. * Shoulder impingement (Somali) * Rotator cuff injury (Somali) documented in this encounter Ordered Prescriptions Prescription [...] Orders: XR SHOULDER LEFT 4 VIEWS; Future [place] ARTHROCENTESIS ASPIR&/INJ MAJOR JT/BURSA W/O US AMB [...] Type Priority Associated Diagnoses Orde r Schedule [place] ARTHROCENTESIS ASPIR&/INJ MAJOR JT/BURSA W/O US [place] Charge Routine Acute pain of left shoulder [...] 12:51 PM CLINICAL HISTORY: M25.512-Pain in left [id number]-[id number]-17-CM COMPARISON: None. PROCEDURE COMMENTS: Routine views. FINDINGS: The glenohumeral and acromioclavicular joints are congruent. There is no fracture. Joint spaces overall well-maintained for age. No periostitis. Procedure Note Thomas Booth MD - 04/08/2025 XR SHOULDER LEFT 4 VIEWS, 04/08/2025 12:51 PM CLINICAL HISTORY: M25.512-Pain in left [id number]-[id number]-63-CM COMPARISON: None. PROCEDURE COMMENTS: Routine views. FINDINGS: [...] 04/08/2025 documented in this encounter Care Teams Church History Teacher Relationship Specialty Start Date End Date Bradford Howe MD [address] [place] [address] [place] [phone] PCP - General Psychiatry & Neurology-Neurology 10/04/11 documented as of this encounter
--- OUTSIDE RECORDS SUMMARY | 2025-04-08 12:50 | XMS_ITS | Encounter Summary ---
Author Organization [facility] [place] [address] Care Team Providers Care Fabrication Department Supervisor Name Role Phone Bradford Howe MD Primary Care Provider [phone] Encounter Details Date Type Department Care Team (Latest Contact Info) Description 04/08/2025 12:50 PM EDT Ancillary Procedure [facility] [address] [address] [address] [place] [phone] Blake Lee MD [address] [place] [address] [address] [place] [address] Acute pain of left shoulder Discharge Disposition: Home or Self Care Social History Tobacco Use Types Packs/Day Years [...] on file documented as of this encounter Discharge Disposition Disposition Code Departure Means Destination Home or Self Care documented in this encounter Plan of Treatment Not on file documented as of this encounter Procedures Procedure Name Priority Date/Time Associated Diagnosis Comments XR SHOULDER LEFT 4 VIEWS STAT 04/08/2025 12:51 PM EDT Acute pain of left shoulder documented in this encounter Results * XR SHOULDER LEFT 4 VIEWS (04/08/2025 [...] 12:51 PM CLINICAL HISTORY: M25.512-Pain in left [id number]-KUL-46-CM COMPARISON: None. PROCEDURE COMMENTS: Routine views. FINDINGS: The glenohumeral and acromioclavicular joints are congruent. There is no fracture. Joint spaces overall well-maintained for age. No periostitis. Procedure Note Thomas Booth MD - 04/08/2025 XR SHOULDER LEFT 4 VIEWS, 04/08/2025 12:51 PM CLINICAL HISTORY: M25.512-Pain in left [id number]-DZC-96-CM COMPARISON: None. PROCEDURE COMMENTS: Routine views. FINDINGS: The glenohumeral and acromioclavicular joints are congruent.There is no fracture. Joint spaces overall well-maintained for age. No periostitis. IMPRESSION: No acute bony abnormality of the shoulder. - Note: Radiology results need to be interpreted within a comprehensiveclinical context. If you have questions about the radiology report, please contactthe office of the ordering clinician. Blake Lee MD [facility] DIAGNOSTIC IMAGING ORDERABLE S Final Result documented in this encounter Visit Diagnoses Diagnosis Acute pain of left shoulder documented in this encounter Care Teams Fabrication Department Supervisor Relationship Specialty Start Date End Date Bradford Howe MD [address] [place] [address] [place] [phone] PCP - General Psychiatry & Neurology-Neurology 10/04/11 documented as of this encounter
--- OUTSIDE RECORDS SUMMARY | 2025-05-23 09:20 | XMS_ITS | Clinical Summary ---
Author Organization [facility] Address [address] [place] [address] Phone Care Team Providers Care Cardiovascular Disease Specialist Name Role Phone Tariq Lagos MD [phone] Conditions or Problems No information available. Medications No information available. Medications Administered No information available. Allergies, Adverse Reactions, Alerts No information available. Results No information available. Plan of Care No information available. Procedures No information available. Vital Signs No information available. Immunizations No information available. Advance Directives No information available.
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
--- OUTSIDE RECORDS SUMMARY | 2025-05-23 09:21 | XMS_ITS | Referral Summary ---
Author Organization [facility] Address [address] [place] [address] Care Team Providers Care Nephrology Nurse Name Role Phone Pcp, None MD Primary Care Provider [phone] Medications valacyclovir (VALTREX) 500 MG TABS Take [...] CROSS ALL OTHERS NOT MEDICARE Care Teams Nephrology Nurse Relationship Specialty Start Date End Date Pcp, None, PCP - General Internal Medicine 03/01/19
--- OUTSIDE RECORDS SUMMARY | 2025-05-23 09:21 | XMS_ITS | Clinical Summary ---
Author Organization [facility] Address [address] [place] [address] Care Team Providers Care Casting Room Operator Name Role Phone Nonstaff, Referring MD Primary Care Provider [phone] Layo Ortega MD Unavailable Unavailabl e Allergies [...] on file Medical Devices Implanted Type Area Web Marketing Intern Device Identifier Shelf Expiration Date Model / Serial / Lot Graft Bone Kt Infuse Med Implanted:Qty : 1 on 12/07/2011 at [facility] Spine Lumbar * MEDTRONIC 07/30/2014 [id number] / / [id number] Herman Mon Pre-Bent 30mm Ti Implanted:Qty : 1 on 12/07/2011 at [facility] Spine Lumbar * CYNTHIA MARIE [id number] / / Rashard Bone Crush Canc 30ml Implanted:Qty : 1 on 12/07/2011 at [facility] Spine Lumbar * LIFENET 08/30/2016 PCAN30 / / [id number] Grft Bone Crush Canc 30ml Implanted:Qty : 1 on 12/07/2011 at [facility] Spine Lumbar * LIFENET 08/29/2016 PCAN30 / / [id number] Mesh 12x23 Ov/Tr 12x16 Height Implanted:Qty : 2 on 12/07/2011 at [facility] Spine Lumbar * CYNTHIA MARIE [id number] / / Endcap 12x23 Implanted:Qty : 4 on 12/07/2011 at [facility] Spine Lumbar * CYNTHIA MARIE [id number] / / Scr Si Polyaxl 7 X 40mm Implanted:Qty : 2 on 12/07/2011 at [facility] Spine Lumbar * CYNTHIA MARIE [id number] / / Scr Si Polyaxl 6 X 50mm Implanted:Qty : 2 on 12/07/2011 at [facility] Spine Lumbar * CYNTHIA MARIE [id number] / / Single-Inner Setscr Implanted:Qty : 4 on 12/07/2011 at [facility] Spine Lumbar * CYNTHIA MARIE [id number] / / Herman Mon Pre-Bent 35mm Ti Implanted:Qty : 1 on 12/07/2011 at [facility] Spine Lumbar * CYNTHIA MARIE [id number] / / Insurance ANTHEM Advance Directives For more information, please contact: [phone] * Full Code (Latest Code Status on File) Date Activated Date Inactivated Comments 12/07/2011 5:35 PM 12/10/2011 12:33 AM Care Teams Casting Room Operator Relationship Specialty Start Date End Date Laura Richardson MD [address] [place] [address] PCP - General 11/25/11 Layo Ortega MD [address] [place] [address] Orthopedic Surgery 11/06/22
--- OUTSIDE RECORDS SUMMARY | 2025-05-23 09:21 | XMS_ITS | Clinical Summary ---
Author Organization [facility] Address [address] [place] [address] Care Team Providers Care Molder Feeder Name Role Phone Pcp, None MD Primary Care Provider [phone] Medications valacyclovir (VALTREX) 500 MG TABS Take [...] - 1-dose 75+ series) 2060 Meningococcal conjugate jole nt 4 (MCV4) Aged Out No longer eligible b ased on patient's age to complete this topic Pneumococcal 0-49 Aged Out No longer eligible based on patient's age to complete this topic RSV Immunization (<20 months) Aged Out No longer eligible based on patient's age to complete this topic Insurance [facility] ALL OTHERS NOT MEDICARE Care Teams Molder Feeder Relationship Specialty Start Date End Date Pcp, None, PCP - General Internal Medicine 03/01/19
--- NOTE | 2025-05-23 09:30 | US_ITS ---
FINAL REPORT TECHNIQUE: Multiple transverse and longitudinal images CLINICAL HISTORY: elevated liver enzymes FINDINGS: The gallbladder shows no wall thickening, distention or stone disease. No biliary ductal dilatation is appreciated. No fluid collections are seen. There is fatty infiltration of the liver. Limited portions of the right kidney are unremarkable. Pancreas is largely obscured. IMPRESSION: Fatty liver, otherwise unremarkable. Reviewed, Interpreted and Dictated by Kishore Mcgovern MD Transcribed by Erendira Bello Authenticated and [facility]
== END 2025-05-23 23:59 | disposition home or self-care (01) ==
PROVIDERS: PCP Nurse Practitioner; Visit Provider Nurse Practitioner
DX: K76.0 Fatty (change of) liver, not elsewhere classified (principal)
CPT/HCPCS: 76705